=== PATIENT | female | born 1995 | race Two or more races ===

== ENCOUNTER 2017-03-25 11:00 | Emergency (ER) | payer MEDICAID, OTHER ==
[~2017-03-25] VITALS: Ht 167.6 cm; Wt 54.4 kg
--- NOTE | 2017-03-25 11:15 | NUR ---
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 NAD NOTED, VSS, PUT ON HOSPITAL GOWN AND MONITOR, WAITING FOR MD GAINES
[2017-03-25] MEDS ORDERED: MORPHINE SULFATE INJ 2 MG/ML DISP.SYRIN IV ONE (11:30)
[2017-03-25] MEDS ORDERED: IV NS 0.9% 1,000 ML BAG IV ONE (11:30)
[2017-03-25] MEDS ORDERED: ONDANSETRON HCL/PF 4 MG/2 ML VIAL IVP ONE (11:30)
[2017-03-25] MEDS ORDERED: ONDANSETRON HCL/PF 4 MG/2 ML VIAL ONE (11:32)
[2017-03-25] MEDS ORDERED: MORPHINE SULFATE INJ 2 MG/ML DISP.SYRIN ONE (11:32)
[2017-03-25 11:48] LABS: BASOPHILS # (AUTO) 0.1 /CMM (0.0-0.2); BASOPHILS % (AUTO) 0.8 % (0.0-2.0); EOSINOPHILS # (AUTO) 0.1 /CMM (0.0-0.7); EOSINOPHILS % (AUTO) 1.4 % (0.0-6.0); HEMATOCRIT 42 % (33-45); HEMOGLOBIN 14.3 g/dL (11.5-14.8); LYMPHOCYTES # (AUTO) 2.3 /CMM (0.8-4.8); LYMPHOCYTES % (AUTO) 28.4 % (20.0-44.0); MEAN CORPUSCULAR HEMOGLOBIN 32 PG (26.0-33.0); MEAN CORPUSCULAR HGB CONC 34 g/dl (31.0-36.0); MEAN CORPUSCULAR VOLUME 93 fL (82-100); MONOCYTES # (AUTO) 0.3 /CMM (0.1-1.30); MONOCYTES % (AUTO) 3.8 % (2.0-12.0); NEUTROPHILS # (AUTO) 5.3 /CMM (1.8-8.9); NEUTROPHILS % (AUTO) 65.6 % (43.0-81.0); PLATELET COUNT (AUTO) 276 /CMM (150-450); RDW COEFFICIENT OF VARIATION 13.1 (11.5-15.0); RED BLOOD CELL COUNT(AUTO) 4.52 MIL/uL (4.0-5.2); WHITE BLOOD COUNT (AUTO) 8.1 K/uL (4.3-11.0)
[2017-03-25 12:01] LABS: CREATININE 0.7 mg/dL (0.6-1.3); POTASSIUM 4.1 mmol/L (3.5-5.1)
[2017-03-25 12:02] LABS: INR 0.95 (0.87-1.13); PROTHROMBIN TIME 9.9 SECS (9.5-12.7)
[2017-03-25 12:17] LABS: ALBUMIN 4.5 g/dL (3.4-5.0); BILIRUBIN,DIRECT 0.2 mg/dL (0.0-0.2); BILIRUBIN,TOTAL 0.8 mg/dL (0.2-1.0); TOTAL PROTEIN, SERUM 8.2 g/dL (6.4-8.2)
--- NOTE | 2017-03-25 12:24 | NUR ---
URINE SAMPLE SENT TO LAB
[2017-03-25 12:35] LABS: APPEARANCE,URINE Slightly Cloudy (CLEAR); BILIRUBIN,URINE Negative (NEGATIVE); BLOOD, URINE Large Ery/uL (NEGATIVE); COLOR,URINE Dark (YELLOW); KETONES,URINE Negative (NEGATIVE); LEUKOCYTE ESTERASE ,URINE Negative (NEGATIVE); NITRITE, URINE Negative (NEGATIVE); PH,URINE 7.5 (5.0-8.0); PROTEIN,URINE 100 mg/dl (NEGATIVE); UGLUCOSE Negative (NEGATIVE)
[2017-03-25 12:55] LABS: BACTERIA,URINE Few /HPF (None Seen); HYALINE CASTS, URINE Rare /LPF (None Seen); SQUAMOUS EPITHELIAL CELL,UR Few /HPF (None Seen); WBC,URINE 0-2 /HPF (0-3)
--- NOTE | 2017-03-25 14:43 | NUR ---
ON 03/25/17 LABS CAME BACK WITH HCG OF 1, WANTED TO MAKE SURE THAT THE PATIENT WAS NOT DUE TO HER SYMPTOMS (SPOTTING AND HEMATURIA). I ASKED FOR THE PATIENT TO SIGN A WAIVER FOR LEGAL PURPOSES BOTH FOR MYSELF AND THE HOSPITALS . WAS GIVEN A REALLY DIFFICULT TIME BY THE EMT([email or web address]) ON DUTY . ALTHOUGH THE ORDERING MD STATED THAT HCG LEVEL OF ONE WAS NEG , DUE TO LEGAL REASONS A WAIVER WAS REQUESTED BY ME. NEVER REFUSED TO DO THE EXAM JUST WANTED LEGAL PROTECTION ONCE AGAIN FOR BOTH MYSELF AND THE HOSPITAL. SCAN WAS DONE SOON THE WAIVER WAS SIGNED.
[2017-03-25 15:46] VITALS: BP 101/67
== END 2017-03-25 15:49 | disposition home or self-care (01) ==
LOC: ER 11:03
DX: R10.2 Pelvic and perineal pain (principal); N13.4 Hydroureter; R31.9 Hematuria, unspecified
CPT/HCPCS: 36415; 74176; 80048; 80076; 81001; 84702; 85025; 85730; 87086; 96361; 96374; 96375; 99285; A4606; J2270; J2405; J7030; Z7610; 81000-TC